=== PATIENT | male | born 1970 | race Caucasian/White ===

== ENCOUNTER 2016-07-31 02:56 | Inpatient (IN) | payer MEDICARE, OTHER ==
[~2016-07-31] VITALS: Ht 175.3 cm; Wt 78.5 kg
[2016-07-31 03:54] LABS: HEMOGLOBIN 14.6 gm/dl (14.0-17.5); RED BLOOD COUNT 4.65 M/UL (4.20-5.50); WHITE BLOOD COUNT 14.8 K/UL (4.5-11.0)
[2016-07-31 04:14] LABS: BUN/CREATININE RATIO 14 (0-10)
[2016-07-31] MEDS ORDERED: ASPIR 8181 MG PO (17:59)
[2016-07-31] MEDS ORDERED: OMEPRAZOLE40 MG PO (18:01)
[2016-07-31] MEDS ORDERED: PLAVIX 75 MG TA75 MG PO (18:01)
[2016-07-31] MEDS ORDERED: TRAZODONE HCL50 MG PO (18:02)
[2016-07-31] MEDS ORDERED: LIORESAL TAB 1010 MG PO (18:03)
[2016-07-31] MEDS ORDERED: RANITIDINE HCL150 M1 PO (18:03)
[2016-07-31] MEDS ORDERED: VIIBRYD40 MG PO (19:23)
[2016-07-31] MEDS ORDERED: NORVASC10 MG PO (19:24)
[2016-07-31] MEDS ORDERED: LIPITOR TAB 2020 MG PO (19:25)
[2016-07-31] MEDS ORDERED: ZYRTEC10 M3 PO (19:26)
[2016-07-31] MEDS ORDERED: GLUCOPHAGE1000 MG PO (19:27)
[2016-07-31] MEDS ORDERED: NEURONTIN 400400 MG PO (19:28)
[2016-07-31] MEDS ORDERED: FENOFIBRATE160 MG PO (19:30)
[2016-07-31] MEDS ORDERED: RAMIPRIL2.5 MG PO (19:30)
[2016-07-31] MEDS ORDERED: VITAMIN D10000 UNIT PO (19:46)
[2016-08-01 04:38] LABS: HEMOGLOBIN 13.5 gm/dl (14.0-17.5); RED BLOOD COUNT 4.35 M/UL (4.20-5.50); WHITE BLOOD COUNT 12.4 K/UL (4.5-11.0)
[2016-08-01 05:03] LABS: BUN/CREATININE RATIO 11 (0-10)
[2016-08-02 03:42] LABS: HEMOGLOBIN 12.9 gm/dl (14.0-17.5); RED BLOOD COUNT 4.17 M/UL (4.20-5.50); WHITE BLOOD COUNT 13.4 K/UL (4.5-11.0)
[2016-08-02 04:04] LABS: BUN/CREATININE RATIO 14 (0-10)
[2016-08-02 12:16] LABS: HEMOGLOBIN 13.3 gm/dl (14.0-17.5); RED BLOOD COUNT 4.29 M/UL (4.20-5.50); WHITE BLOOD COUNT 14.7 K/UL (4.5-11.0)
[2016-08-02 12:40] LABS: BUN/CREATININE RATIO 13 (0-10)
[2016-08-03 03:45] LABS: HEMOGLOBIN 13.3 gm/dl (14.0-17.5); RED BLOOD COUNT 4.28 M/UL (4.20-5.50)
[2016-08-03 04:06] LABS: BUN/CREATININE RATIO 11 (0-10)
[2016-08-04 04:31] LABS: HEMOGLOBIN 13.7 gm/dl (14.0-17.5); RED BLOOD COUNT 4.45 M/UL (4.20-5.50); WHITE BLOOD COUNT 15.1 K/UL (4.5-11.0)
[2016-08-04 04:55] LABS: BUN/CREATININE RATIO 10 (0-10)
[2016-08-05 04:24] LABS: HEMOGLOBIN 13.4 gm/dl (14.0-17.5); RED BLOOD COUNT 4.33 M/UL (4.20-5.50); WHITE BLOOD COUNT 14.1 K/UL (4.5-11.0)
[2016-08-05 04:39] LABS: BUN/CREATININE RATIO 13 (0-10)
[2016-08-06 06:15] LABS: HEMOGLOBIN 14.2 gm/dl (14.0-17.5); RED BLOOD COUNT 4.58 M/UL (4.20-5.50); WHITE BLOOD COUNT 13.6 K/UL (4.5-11.0)
[2016-08-06 06:42] LABS: BUN/CREATININE RATIO 14 (0-10)
[2016-08-07 05:23] LABS: RED BLOOD COUNT 4.85 M/UL (4.20-5.50)
[2016-08-07 05:24] LABS: WHITE BLOOD COUNT 17.6 K/UL (4.5-11.0)
[2016-08-07 05:44] LABS: BUN/CREATININE RATIO 18 (0-10)
[2016-08-08 06:44] LABS: HEMOGLOBIN 13.6 gm/dl (14.0-17.5); RED BLOOD COUNT 4.47 M/UL (4.20-5.50)
[2016-08-08 06:45] LABS: WHITE BLOOD COUNT 29.2 K/UL (4.5-11.0)
[2016-08-08 07:19] LABS: BUN/CREATININE RATIO 21 (0-10)
[2016-08-09 04:28] LABS: HEMOGLOBIN 11.8 gm/dl (14.0-17.5)
[2016-08-09 04:29] LABS: RED BLOOD COUNT 3.86 M/UL (4.20-5.50); WHITE BLOOD COUNT 33.1 K/UL (4.5-11.0)
[2016-08-09 04:38] LABS: BUN/CREATININE RATIO 20 (0-10)
[2016-08-10 04:23] LABS: HEMOGLOBIN 10.9 gm/dl (14.0-17.5); RED BLOOD COUNT 3.57 M/UL (4.20-5.50)
[2016-08-10 04:31] LABS: WHITE BLOOD COUNT 24.1 K/UL (4.5-11.0)
[2016-08-10 04:38] LABS: BUN/CREATININE RATIO 18 (0-10)
[2016-08-11 05:51] LABS: BUN/CREATININE RATIO 13 (0-10)
--- NOTE | 2016-08-11 16:54 | NUR ---
PATIENT'S ROOM SMELLED LIKE SMOKE THAT HAD BEEN COVERED WITH PERFUME. I ASKED THE PATIENT IF HE AND HIS HAD BEEN SMOKING WHICH THEY DENIED. THE STATED THAT SHE DOES SMOKE BUT SHE GOES OUTSIDE TO DO SO. I INFORMED THEM THAT THIS IS A NONSMOKING FACILITY AND IT IS A DANGER TO THE PATIENT AND ALL OF OUR OTHER PATIENT'S IF THEY ARE SMOKING IN THE ROOM.
[2016-08-11 23:57] LABS: HEMOGLOBIN 12.2 gm/dl (14.0-17.5); RED BLOOD COUNT 4.05 M/UL (4.20-5.50); WHITE BLOOD COUNT 18.2 K/UL (4.5-11.0)
[2016-08-12 05:43] LABS: HEMOGLOBIN 13.5 gm/dl (14.0-17.5); WHITE BLOOD COUNT 17.3 K/UL (4.5-11.0)
[2016-08-12 05:48] LABS: RED BLOOD COUNT 4.5 M/UL (4.20-5.50)
[2016-08-12 06:03] LABS: BUN/CREATININE RATIO 9 (0-10)
== END 2016-08-12 22:54 | disposition short-term general hospital (02) | DRG 438 ==
LOC: ER1 02:56 → MED SURG 4 16:37 → ZEROF 16:37 → MED SURG 4 16:37
PROVIDERS: Emergency Medicine; Internal Medicine; Internal Medicine Infectious Disease; Physician Assistant Medical; ADMIT Internal Medicine
DX: K85.90 Acute pancreatitis without necrosis or infection, unspecified (principal); J18.9 Pneumonia, unspecified organism; G93.40 Encephalopathy, unspecified; K86.3 Pseudocyst of pancreas; J98.11 Atelectasis; E87.1 Hypo-osmolality and hyponatremia; I69.351 Hemiplegia and hemiparesis following cerebral infarction affecting right dominant side; E87.2 Acidosis; M62.82 Rhabdomyolysis; E11.649 Type 2 diabetes mellitus with hypoglycemia without coma; E87.6 Hypokalemia; I25.10 Atherosclerotic heart disease of native coronary artery without angina pectoris; K86.1 Other chronic pancreatitis; E11.65 Type 2 diabetes mellitus with hyperglycemia; T38.3X5A Adverse effect of insulin and oral hypoglycemic [antidiabetic] drugs, initial encounter; I10 Essential (primary) hypertension; E78.5 Hyperlipidemia, unspecified; D47.3 Essential (hemorrhagic) thrombocythemia; K29.00 Acute gastritis without bleeding; T50.2X5A Adverse effect of carbonic-anhydrase inhibitors, benzothiadiazides and other diuretics, initial encounter; D64.9 Anemia, unspecified; F17.200 Nicotine dependence, unspecified, uncomplicated; I25.2 Old myocardial infarction; Z95.5 Presence of coronary angioplasty implant and graft; Z79.02 Long term (current) use of antithrombotics/antiplatelets; Z79.82 Long term (current) use of aspirin; Z79.84 Long term (current) use of oral hypoglycemic drugs; Z79.899 Other long term (current) drug therapy; Z80.0 Family history of malignant neoplasm of digestive organs; Z80.1 Family history of malignant neoplasm of trachea, bronchus and lung; Z83.3 Family history of diabetes mellitus; Z82.49 Family history of ischemic heart disease and other diseases of the circulatory system
CPT/HCPCS: 36415; 70450; 71010; 76705; 80048; 80053; 80061; 80202; 81001; 82150; 82550; 82553; 82947; 82962; 83036; 83540; 83550; 83605; 83690; 83735; 83874; 83880; 84132; 84484; 85025; 85027; 85610; 85730; 86140; 87040; 87086; 93005; 96365; 96375; 99285; C9113; G0378; J1335; J1650; J1956; J2185; J2270; J2405; J2550; J3370; J7030; J7050; J7070; J7120; Q9962